=== PATIENT | male | born 1985 | race Caucasian/White ===

== ENCOUNTER 2020-08-09 00:25 | Emergency (ER) | payer SELFPAY ==
[~2020-08-09] VITALS: Ht 175.3 cm; Wt 77.6 kg
[2020-08-09 00:33] VITALS: BP 153/68
--- NOTE | 2020-08-09 00:38 | NUR ---
lapd at bedside for police report.
[2020-08-09] MEDS: HYDROCODONE/APAP 5/325MG TABLET PO ONE ×2 (01:00→01:30)
[2020-08-09] MEDS ORDERED: ACETAMINOPHEN ES 500 MG TABLET ONE (01:03)
[2020-08-09] MEDS: ACETAMINOPHEN ES 500 MG TABLET PO ONE (01:03)
[2020-08-09] MEDS ORDERED: HYDROCODONE/APAP 5/325MG TABLET ONE (01:27)
--- NOTE | 2020-08-09 01:40 | NUR ---
Patient discharged to home in stable condition. Written and verbal after care instructions given. Patient verbalizes understanding of instruction. ambulatory with a steady gait. instructed pt not to drive. pt verbalized understanding.
== END 2020-08-09 01:53 | disposition home or self-care (01) ==
LOC: ER 00:25
DX: S09.8XXA Other specified injuries of head, initial encounter (principal); M25.511 Pain in right shoulder; V49.59XA Passenger injured in collision with other motor vehicles in traffic accident, initial encounter; Y93.89 Activity, other specified; Y92.413 State road as the place of occurrence of the external cause; Y99.8 Other external cause status
CPT/HCPCS: 70450-TC; 73030-TC